=== PATIENT | male | born 1995 | race Caucasian/White ===

== ENCOUNTER 2017-05-06 13:10 | Emergency (ER) | payer MEDICAID ==
[~2017-05-06] VITALS: Ht 180.3 cm; Wt 123.5 kg
[2017-05-06 13:12] VITALS: Ht 180.3 cm; Wt 123.5 kg
[2017-05-06] MEDS ORDERED: HYD25 PO (13:29)
[2017-05-06] MEDS ORDERED: LORAZEPAM 1 MG TAB PO ONE (13:30)
[2017-05-06] MEDS ORDERED: NICARDipine HCL 30 MG CAPSULE PO ONE (13:30)
--- NOTE | 2017-05-06 13:45 | ERD ---
ER Documentation Chief Complaint Date/Time DATE: 05/06/17 TIME: 13:41 Chief Complaint Complains of feeling anxious HPI Patient is a 21-year-old male with no medical problems who presents with anxiety. The patient says that he started feeling anxious after eating [employer] on Wednesday. He had this feeling in his stomach. He felt like he was shaking and felt like he could not swallow and got short of breath. However once he said to himself that he could calm down he said "oh yes I cannot breathe ". He feels "anxious". He has had anxiety in the past. He last used cocaine on Wednesday. Upon review of old medical records this is the patient's first visit to the emergency department. He does not currently have a primary doctor. He said that his blood pressure was checked 1 year ago and it was high at that time although he has never been diagnosed with hypertension and does not take blood pressure medicines. ROS All systems reviewed and are negative except as per history of present illness. Medications Home Meds Active Scripts Hydrochlorothiazide* (Hydrochlorothiazide*) 25 Mg Tab, 25 MG PO DAILY, #30 TAB Prov:CHILO HARRISON MD 05/06/17 Allergies Allergies: Coded Allergies: No Known Allergy (Unverified , 05/06/17) PMhx/Soc Medical and Surgical Hx: pt denies Medical Hx, pt denies Surgical Hx History of Surgery: No Anesthesia Reaction: No Hx Neurological Disorder: No Hx Respiratory Disorders: No Hx Cardiac Disorders: No Hx Psychiatric Problems: No Hx Miscellaneous Medical Probl: No Hx Alcohol Use: No Hx Substance Use: No Hx Tobacco Use: No Smoking Status: Never smoker FmHx Family History: diabetes Physical Exam Vitals Vital Signs Date Time Temp Pulse Resp B/P Pulse Ox O2 Delivery O2 Flow Rate FiO2 05/06/17 13:12 98.8 147 20 224/93 97 Physical Exam Const: No acute distress Head: Atraumatic Eyes: Normal Conjunctiva ENT: Normal External Ears, Nose and Mouth. Neck: Full range of motion..~ No meningismus. Resp: Clear to auscultation bilaterally Cardio: Regular rate and rhythm, no murmurs Abd: Soft, non tender, non distended. Normal bowel sounds Skin: No petechiae or rashes Back: No midline or flank tenderness Ext: No cyanosis, or edema Neur: Awake and alert Psych: Mild anxiety but no suicidal or homicidal ideation Results 24 hrs Current Medications Medications (Trade) Dose Ordered Sig/Nidia Route PRN Reason Start Time Stop Time Status Last Admin Dose Admin Lorazepam (Ativan) 1 mg ONCE ONCE PO 05/06/17 13:30 05/06/17 13:31 DC Nicardipine HCl (Cardene) 30 mg ONCE ONCE PO 05/06/17 13:30 05/06/17 13:31 DC Procedures/MDM Patient is a 21-year-old male who presents with anxiety and hypertension. The patient was given Cardene for the blood pressure and Ativan for the anxiety. He does not have any signs of suicidal or homicidal ideation and I do not believe he requires a 5150 hold. The patient will need to follow-up closely with a primary doctor as he does not currently have a primary doctor and I will give him information for the local clinics. The patient will be started on hydrochlorothiazide 25 mg daily as I do believe that he has underlying essential hypertension. The patient will need his blood pressure checked within 1 week. He can return for any worsening symptoms. I do not believe he requires further workup or admission the hospital at this time. I doubt true hypertensive emergency. Departure Diagnosis: Primary Impression: Hypertension Hypertension type: essential hypertension Qualified Code: I10 - Essential hypertension Additional Impression: Anxiety attack Condition: Fair Patient Instructions: High Blood Pressure (Hypertension), Panic Attack Referrals: [facility] YOU HAVE RECEIVED A MEDICAL SCREENING EXAM AND THE RESULTS INDICATE THAT YOU DO NOT HAVE A CONDITION THAT REQUIRES URGENT TREATMENT IN THE EMERGENCY DEPARTMENT. FURTHER EVALUATION AND TREATMENT OF YOUR CONDITION CAN WAIT UNTIL YOU ARE SEEN IN YOUR DOCTORS OFFICE WITHIN THE NEXT 1-2 DAYS. IT IS YOUR RESPONSIBILITY TO MAKE AN APPOINTMENT FOR FOL-UP CARE. IF YOU HAVE A PRIMARY DOCTOR --you should call your primary doctor and schedule an appointment IF YOU DO NOT HAVE A PRIMARY DOCTOR YOU CAN CALL OUR PHYSICIAN REFERRAL HOTLINE AT IF YOU CAN NOT AFFORD TO SEE A PHYSICIAN YOU CAN CHOSE FROM THE FOLLOWING [facility] [address] [facility] [address] [facility] [facility] [address] [facility] [address] [facility]. [facility] [address] [facility] [facility] [address] Additional Instructions: Call your primary care doctor TOMORROW for an appointment during the next 1-2 days.See the doctor sooner or return here if your condition worsens before your appointment time. CHILO HARRISON MD May 06, 2017 13:45
--- NOTE | 2017-05-06 15:07 | EN ---
Date/Time of Note Date/Time of Note DATE: 05/06/17 TIME: 15:02 ER Progress Note This patient was signed out to me by Dr. Hinson at 2 PM on May 06, 2017 pending discharge. Very briefly, this is a patient with a history of anxiety and polysubstance abuse including marijuana and cocaine, who is presenting with an episode of anxiety. The patient was given Ativan in the emergency department with some relief of his anxiety, but he still felt a little anxious in the emergency department. The patient was also tachycardic and hypertensive in the emergency department. He also got Cardene. His blood pressure did improve, but he remains tachycardic. An EKG was performed to evaluate his tachycardia. EKG read by me: Rate/Rhythm: Regular rhythm, sinus tachycardia at a rate of 142 bpm Intervals: Normal Impression: No evidence of ischemia or arrhythmia Chest x-ray was also performed that did not reveal any acute disease. There is no cardiomegaly. There are no signs of pleural effusion or pulmonary edema or pneumonia. There is no evidence of pneumothorax. The patient was given another dose of Ativan in addition to 1 L of IV fluids. His heart rate did improve down to the low 120s to high 110s. Shared decision making was done with the patient and the patient preferred to go home with evaluation by primary care doctor in 1-2 days. The patient denies any chest pain or shortness of breath. He did feel little short of breath when he first arrived, but he states that he never had any pain. He does not have a concerning cardiac history per his report. He likewise has no radiating pain. The patient was given precautions with which to return to the emergency department. At this time, he is stable for discharge. JOVITA CLAYTON MD May 06, 2017 15:07
[2017-05-06] MEDS ORDERED: LORAZEPAM 2 MG INJ IV ONE (15:30)
[2017-05-06] MEDS ORDERED: SOD CHLORIDE 0.9% 1,000 ML IV ONE (15:30)
--- NOTE | 2017-05-06 15:40 | RADRPT ---
PROCEDURE: XR Chest. CLINICAL INDICATION: tachycardia TECHNIQUE: Single frontal view of the chest was obtained. COMPARISON: None. FINDINGS: The heart and mediastinum are within normal limits. The lungs are clear. There is no significant pleural effusion or pneumothorax. IMPRESSION: No acute disease. RPTAT: EE Physician Cecelia Date Time Electronically viewed and signed by Percy Harvey Physician on 05/06/2017 15:40 RA/
[2017-05-06 18:43] VITALS: BP 160/85; PULSE 85; RESP 17
== END 2017-05-06 18:45 | disposition home or self-care (01) ==
LOC: E/R 13:10
DX: I10 Essential (primary) hypertension (principal)
CPT/HCPCS: 71010; 82962; 93005; 96374; J2060; J7030; Z7502; Z7610